=== PATIENT | male | born 2000 | race Caucasian/White ===

== ENCOUNTER 2022-09-02 02:08 | Inpatient (IN) ==
[2022-09-02 02:56] LABS: Basophils # (auto) 0.03 K/uL (0-0.2); Basophils % (auto) 0.4 %; Hematocrit (blood only) 41.6 % (40.1-51.0); Hemoglobin 14.4 g/dl (14.0-18.0); Immature Granulocytes # (auto) 0.13 K/uL (0.00-0.02); Immature Granulocytes % (auto) 1.7 %; Lymphocytes # (auto) 0.57 K/uL (1.2-3.4); Lymphocytes % (auto) 7.6 %; Mean Corpuscular Hemoglobin 29.1 pg (25.0-34.0); Mean Corpuscular Hgb Conc 34.6 g/dL (32.0-36.0); Mean Platelet Volume 9.6 fL (9.4-12.4); Monocytes # (auto) 0.87 K/uL (0.24-0.82); Monocytes % (auto) 11.6 %; Neutrophils # (auto) 5.92 K/uL (1.4-6.5); Neutrophils % (auto) 78.7 %; Platelet Count 206 K/uL (130-400); RDW Coefficient of Variation 12.7 % (11.5-14.5); RDW Standard Deviation 38.5 fL (36.4-46.3); Red Blood Count 4.95 M/uL (4.63-6.08); White Blood Count 7.52 K/ul (4.8-10.8)
[2022-09-02 03:20] LABS: INR 1.1 (0.9-1.1); Partial Thromboplastin Ratio 1.3; Partial Thromboplastin Time 34.7 Seconds (21.0-31.0); Prothrombin Time 11.2 Seconds (9.0-12.0)
[2022-09-02 03:22] LABS: Alanine Aminotransferase 18 U/L (7-52); Albumin Globulin Ratio 0.8 (0.9-2); Albumin Level 3.7 gm/dl (3.4-5.0); Alkaline Phosphatase 62 U/L (34-104); Anion Gap 9 (3-11); Aspartate Aminotransferase 21 U/L (13-39); BUN Creatinine Ratio 20.9 (10-20); Bilirubin,Total 0.3 mg/dl (0.2-1.0); Blood Urea Nitrogen 9 mg/dl (6-23); Calcium 8.8 mg/dl (8.5-10.1); Carbon Dioxide 28 mmol/L (21-32); Chloride 83 mmol/L (98-107); Creatinine Clr Calc Pharmacy 235.3 ml/min; Est GFR (African American) > 150.0 ml/min; Est GFR (Non-African American) > 150.0 ml/min; Globulin 4.4 gm/dl (2.5-4.0); Glucose 133 mg/dl (70-99(Fasting)); Magnesium 1.5 mg/dl (1.7-2.4); Sodium 120 mmol/L (136-145); Total Protein 8.1 gm/dl (6.0-8.3)
[2022-09-02 03:33] LABS: Influenza A virus by PCR Negative (Neg); Influenza B virus by PCR Negative (Neg); RSV by PCR Negative (Neg)
[2022-09-02 03:36] LABS: SARS CoV2 RNA(COVID-19) Ceph POSITIVE (Negative)
[2022-09-02] MEDS ORDERED: dexAMETHasone 6 MG in SYRINGE 0 ML IV ONE (03:50)
[2022-09-02] MEDS ORDERED: ALBUT/IPRATROP 3MG/0.5MG NEB 3 ML VIAL NEB STA (03:53)
[2022-09-02] MEDS ORDERED: dexAMETHasone**PF** 10 MG/ML VIAL IV STA (04:26)
--- NOTE | 2022-09-02 04:33 | History & Physical Report ---
Date of Service September 02, 2022 Assessment & Plan (1) COVID-19: Plan: 22 yo male with Prader-Willi syndrome presenting with SOB, wheeze and hypoxia. Found to be POSITIVE for Covid-19 infection. Patient is not vaccinated against Covid. Uncertain if he has had it before. Hypoxic on arrival at 81% on room air. Now with adequate saturation on HFNC 40L/min, 50% FiO2 -Admit to medical with telemetry -Maintain isolation precautions -Check ESR, CRP, Ferritin, LDH, Procalcitonin, Ddimer and BNP -Continue supplemental oxygen, wean as tolerated -Continue Dexamethasone 6mg IV daily -Discussed Remdesivir with patient's father. He does not wish to start Remdesivir at this time. -Lovenox 40mg daily -Tylenol PRN, Mucinex PRN -Albuterol HFA PRN (2) Hyponatremia: Plan: Ld=529. Suspect secondary to SIADH from Covid-19 infection -Check urine and serum osmolality -Check urine Na -Monitor chemistry F/E/N - Heplock. Monitor Na as above, Mg repletion x 2 grams, Regular diet as tolerated Ppx - Lovenox Code - Full Dispo - Admit to medical with telemetry History of Present Illness Chief Complaint: SOB, hypoxia Primary Care Provider: NO PCP Keith Daly is a 22yo male with Prader-Willi syndrome presenting with SOB and hypoxia, found to be POSITIVE for Covid-19 virus. Patient's symptoms began approximately 5 days ago. He developed malaise and fever as well as cough. His symptoms have been progressive over the last several days. Today he was having more difficulty breathing. His father checked his oxygen saturation at home and it was found to be in the low to mid 80's. Patient tachycardic in the ER, tachypnic with hypoxia at 81% on room air. He was placed on 4L of O2 by nasal cannula with rapid improvement in his oxygenation. Still with tachypnea and increased work of breathing, therefore was placed on High Flow NC. Father at bedside and assists with history. Patient resting comfortably, no additional complaints at this time. ER Course: Dexamethasone 6mg IV, Albuterol 3mL neb Allergies Allergy/AdvReac Type Severity Reaction Status Date / Time No Known Allergies Allergy Unverified 01/01/14 14:03 Home Medications Medication Instructions Recorded Confirmed Type Multivitamin 1 tab PO DAILY #0 tabs 01/01/14 History Past Med/Surg History Medical History Prader-Willi syndrome Surgical History History of back surgery Family History Other Asthma Social History (Updated 09/02/22 @ 04:49 by Ashlyn Jacome DO) Smoking Status: Never smoker Hx Alcohol Use: No Hx Substance Use: No Preferred Language: Nepali Feels Safe at Home: Yes Review of Systems Review of Systems: All systems reviewed & are unremarkable except as noted in HPI & below Physical Exam Physical Exam: General: patient resting comfortably, NAD, non-toxic in appearance Skin: warm, dry, intact, no rashes or lesions HEENT: NC/AT, PERRL, EOMI, anicteric sclera, conjunctiva without injection, external ear normal to inspection and nontender, nares patent, moist mucus membranes, dentition intact, no oropharyngeal lesions, neck supple, trachea midline, no LAD, no thyromegaly, no JVD Heart: +S1/S2, regular, tachycardic, no m/r/g Lungs: equal air entry bilaterally, no respiratory distress, breathing comfortably on HFNC 50% FiO2, saturations 96-98%, coarse breath sounds anteriorly with scattered wheezing Abd: +BS, soft, NT/ND, no masses/organomegaly/ascites Ext: warm, 2+ pulses in UE/LE bilaterally, no clubbing/cyanosis or edema Neuro: nonfocal, patient AA&O x 4, speech intact, no facial droop, moving all extremities on command with equal strength 5/5 Results & Data Results & Data ([facility]) Vital Signs (Past 12 Hours) Vital Signs Temp Pulse Pulse Resp BP BP Pulse Ox 09/02/22 04:00 108 H 27 H 157/94 H 96 09/02/22 03:30 112 H 28 H 150/99 H 96 09/02/22 03:00 112 H 29 H 160/102 H 95 09/02/22 02:47 109 H 30 H 95 09/02/22 03:44 101 H 23 96 09/02/22 03:32 97 09/02/22 02:43 20 95 09/02/22 02:44 94 09/02/22 02:44 94 09/02/22 02:08 113 H 30 H 156/98 H 95 09/02/22 02:10 36.6 C 110 H 20 151/92 H 81 L O2 Del Method O2 Flow Rate FiO2 09/02/22 04:00 09/02/22 03:30 09/02/22 03:00 09/02/22 02:47 09/02/22 03:44 High Flow Nasal Cannula 40 50 09/02/22 03:32 High Flow Nasal Cannula 40 09/02/22 02:43 Nasal Cannula 4 09/02/22 02:44 Nasal Cannula 4 09/02/22 02:44 Nasal Cannula 4 09/02/22 02:08 Nasal Cannula 4 09/02/22 02:10 Room Air Laboratory Results Laboratory Results WBC 7.52 K/ul (4.8-10.8) 09/02/22 02:35 RBC 4.95 M/uL (4.63-6.08) 09/02/22 02:35 Hgb 14.4 g/dl (14.0-18.0) 09/02/22 02:35 Hct 41.6 % (40.1-51.0) 09/02/22 02:35 MCV 84.0 fL (80.0-100.0) 09/02/22 02:35 MCH 29.1 pg (25.0-34.0) 09/02/22 02:35 MCHC 34.6 g/dL (32.0-36.0) 09/02/22 02:35 RDW Std Deviation 38.5 fL (36.4-46.3) 09/02/22 02:35 RDW Coeff of Ben 12.7 % (11.5-14.5) 09/02/22 02:35 Plt Count 206 K/uL (130-400) 09/02/22 02:35 MPV 9.6 fL (9.4-12.4) 09/02/22 02:35 Immature Gran % (Auto) 1.7 % 09/02/22 02:35 Neut % (Auto) 78.7 % 09/02/22 02:35 Lymph % (Auto) 7.6 % 09/02/22 02:35 Door % (Auto) 11.6 % 09/02/22 02:35 Eos % (Auto) 0.0 % 09/02/22 02:35 Baso % (Auto) 0.4 % 09/02/22 02:35 Neut # (Auto) 5.92 K/uL (1.4-6.5) 09/02/22 02:35 Lymph # (Auto) 0.57 K/uL (1.2-3.4) L 09/02/22 02:35 Door # (Auto) 0.87 K/uL (0.24-0.82) H 09/02/22 02:35 Eos # (Auto) 0.00 K/uL (0-0.50) 09/02/22 02:35 Baso # (Auto) 0.03 K/uL (0-0.2) 09/02/22 02:35 Immature Gran # (Auto) 0.13 K/uL (0.00-0.02) H 09/02/22 02:35 PT 11.2 Seconds (9.0-12.0) 09/02/22 02:35 INR 1.1 (0.9-1.1) 09/02/22 02:35 APTT 34.7 Seconds (21.0-31.0) H 09/02/22 02:35 PTT Ratio 1.3 09/02/22 02:35 Sodium 120 mmol/L (136-145) L 09/02/22 02:35 Potassium 4.0 mmol/L (3.5-5.1) 09/02/22 02:35 Chloride 83 mmol/L (98-107) L 09/02/22 02:35 Carbon Dioxide 28 mmol/L (21-32) 09/02/22 02:35 Anion Gap 9 (3-11) 09/02/22 02:35 BUN 9 mg/dl (6-23) 09/02/22 02:35 Creatinine 0.43 mg/dl (0.6-1.4) L 09/02/22 02:35 Est Cr Clr Drug Dosing 235.3 ml/min 09/02/22 02:35 Est GFR ( Amer) > 150.0 ml/min 09/02/22 02:35 Est GFR (Non-Af Amer) > 150.0 ml/min 09/02/22 02:35 BUN/Creatinine Ratio 20.9 (10-20) H 09/02/22 02:35 Glucose 133 mg/dl (70-99(Fasting)) H 09/02/22 02:35 Calcium 8.8 mg/dl (8.5-10.1) 09/02/22 02:35 Magnesium 1.5 mg/dl (1.7-2.4) L 09/02/22 02:35 Total Bilirubin 0.3 mg/dl (0.2-1.0) 09/02/22 02:35 AST 21 U/L (13-39) 09/02/22 02:35 ALT 18 U/L (7-52) 09/02/22 02:35 Alkaline Phosphatase 62 U/L (34-104) 09/02/22 02:35 Total Protein 8.1 gm/dl (6.0-8.3) 09/02/22 02:35 Albumin 3.7 gm/dl (3.4-5.0) 09/02/22 02:35 Globulin 4.4 gm/dl (2.5-4.0) H 09/02/22 02:35 Albumin/Globulin Ratio 0.8 (0.9-2) L 09/02/22 02:35 SARS-CoV-2 (PCR) POSITIVE (Negative) A* 09/02/22 02:35 Influenza Type A (PCR) Negative (Neg) 09/02/22 02:35 Influenza Type B (PCR) Negative (Neg) 09/02/22 02:35 RSV (RT-PCR) Negative (Neg) 09/02/22 02:35 Diagnostic Findings CXR with post-operative changes, airspace opacity present RML/RLL Code Status & VTE Plan VTE Prophylaxis Plan VTE Prophylaxis will be ordered: Yes PG Care Time/CCT Total # of Minutes Spent Total Time Spent with Patient: Total time spent is greater than 50% in coordination of care (as documented) at patient's floor/unit and/or counseling patient: Coding Level of Care Code 18303 Initial Inpt Care Lvl 2 Diagnoses COVID-19 U07.1 Hyponatremia E87.1
--- NOTE | 2022-09-02 04:47 | Emergency Department Note ---
History of Present Illness General Chief complaint: Flu Like Symptoms Stated complaint: TROUBLE BREATHING, FLU-LIKE SYMPTOMS Time Seen by Provider: 09/02/22 02:49 Source: patient and family Mode of arrival: ambulatory Limitations: no limitations History of Present Illness Provider complaint: trouble breathing, recent flu like symptoms This is a 22-year-old male brought in by family due to concern for increased dif ficulty breathing. Father at bedside states their entire family has had flulike symptoms recently which the patient began having on Tuesday. He states he has had nasal congestion, rhinorrhea, cough, fevers and chills. He states today he appeared to have increased work of breathing. Father states due to his concern and his own personal history of asthma, he did check the patient's pulse ox this evening and found it to be 85% at home. He states his overall color appeared off so he brought him in for additional evaluation as he is concerned for possible pneumonia. No other recent change in medications. No history of asthma or other respiratory issues. Patient does have a history of Prader-Willi syndrome. Patient at bedside states he does feel improved with oxygen in place. Admits to a cough, nasal congestion, fatigue, fevers and chills. He denies any current chest pain or abdominal pain. Denies vomiting and diarrhea. He states his breathing seems worse with exertion. Home Medications Medication Instructions Recorded Confirmed Type Multivitamin 1 tab PO DAILY #0 tabs 01/01/14 History Allergies Allergy/AdvReac Type Severity Reaction Status Date / Time No Known Allergies Allergy Unverified 01/01/14 14:03 Past Med/Surg History Medical History Prader-Willi syndrome Surgical History History of back surgery Family History Other Asthma Social History Smoking Status: Never smoker Second Hand Exposure: No; Do You Dip or Chew Tobacco: No; Tobacco Cessation Education Requested by Patient: No Hx Alcohol Use: No Hx Substance Use: No Preferred Language: Venezuelan Communication Ability Comment: Developmental delay; dad answers most questions asked. Roof Technician Required: No Beliefs That Will Affect Care: None marital status: Single Current Living Situation: Family Other Information That Helps Us Care for You: Yes (HX of Prader-Willi syndrome) Feels Safe at Home: Yes Safety Concerns: Feels Safe At This Time Assistive Devices: None Review of Systems A total of 10 systems reviewed and were otherwise negative All systems reviewed & are unremarkable except as noted in HPI & below Physical Exam Vital Signs Vital Signs - 24 hr 09/02/22 04:00 Pulse Rate 108 H Pulse Rate from SpO2 Sensor 109 H Respiratory Rate 27 H Blood Pressure 157/94 H Blood Pressure Mean 115 Pulse Oximetry 96 GENERAL: alert, well appearing, well nourished, no distress, non-toxic EYE EXAM: normal conjunctiva, PERRL and EOM's grossly intact OROPHARYNX: no exudate, no erythema, lips, buccal mucosa, and tongue normal and mucous membranes are moist NECK: supple, no nuchal rigidity, no adenopathy, non-tender LUNGS: Normal chest wall mechanics, increased work of breathing noted, tachypnea noted, bilateral wheezing and rales HEART: no murmurs, S1 normal and S2 normal ABDOMEN: abdomen soft, non-tender, normo-active bowel sounds, no masses, no rebound or guarding. BACK: Back is symmetrical on inspection and there is no deformity, no midline tenderness, no CVA tenderness. SKIN: no rashes and no bruising UPPER EXTREMITIES: upper extremities are grossly normal. FROM, nml pulses b/l. LOWER EXTREMITIES: No pitting edema. FROM, nml pulses b/l. NEURO EXAM: Normal sensorium, cranial nerves II-XII grossly intact, normal speech, no gross weakness of arms, no gross weakness of legs. Gross sensation intact. Course Administered Medications Enoxaparin Sodium (Enoxaparin Inj 40 Mg/0.4 Ml Syr) 40 mg SQ BID LEA Stop: 10/02/22 20:59 Last Admin: 09/02/22 21:30 Dose: 40 mg Documented By: ANDERSON Guaifenesin (Guaifenesin 600 Mg Tabcr) 1,200 mg PO Q12 LEA Stop: 10/02/22 08:59 Last Admin: 09/02/22 21:29 Dose: 1,200 mg Documented By: Admin: 09/02/22 09:22 Dose: 1,200 mg Documented By: NELY Dexamethasone 6 mg/ Syringe 1.5 mls @ 1 mls/min IV Q24H LEA Stop: 10/02/22 08:59 Last Admin: 09/02/22 10:19 Dose: 1 mls/min Documented By: NELY Levalbuterol HCl (Levalbuterol Hcl 1.25 Mg/3 Ml Neb) 1.25 mg NEB Q6R LEA; Protocol Stop: 10/02/22 12:59 Last Admin: 09/03/22 00:47 Dose: 1.25 mg Documented By: Admin: 09/02/22 19:08 Dose: 1.25 mg Documented By: Admin: 09/02/22 12:02 Dose: 1.25 mg Documented By: ARACELI Magnesium Oxide (Magnesium Oxide 400 Mg Tab) 400 mg PO BID LEA Stop: 10/02/22 08:59 Last Admin: 09/02/22 21:29 Dose: 400 mg Documented By: Admin: 09/02/22 11:48 Dose: 400 mg Documented By: NELY Discontinued Medications Albuterol (Albut/Ipratrop 3mg/0.5mg Neb 3 Ml Vial) 3 ml NEB NOW STA; Protocol Stop: 09/02/22 03:54 Last Admin: 09/02/22 04:06 Dose: 3 ml Documented By: NATALIA Dexamethasone Sodium Phosphate (DexamethasonePf 10 Mg/Ml Vial) 6 mg IV NOW STA Stop: 09/02/22 04:27 Last Admin: 09/02/22 04:33 Dose: 6 mg Documented By: NATALIA Enoxaparin Sodium (Enoxaparin Inj 40 Mg/0.4 Ml Syr) 40 mg SQ QAM LEA Stop: 10/02/22 08:59 Last Admin: 09/02/22 09:22 Dose: 40 mg Documented By: NELY Magnesium Sulfate/Dextrose (Magnesium Sulfate / D5w) 1 gm in 100 mls @ 50 mls/hr IV Q2H LEA Stop: 09/02/22 10:05 Last Infusion: 09/02/22 12:19 Dose: 0 mls/hr Documented By: Admin: 09/02/22 10:19 Dose: 50 mls/hr Documented By: Infusion: 09/02/22 10:08 Dose: 50 mls/hr Documented By: Admin: 09/02/22 08:08 Dose: 50 mls/hr Documented By: SM Levalbuterol HCl (Levalbuterol Hcl 0.63 Mg/3 Ml Neb) Confirm Administered Dose 0.63 mg .ROUTE .STK-MED ONE Stop: 09/02/22 11:58 Last Admin: 09/02/22 12:02 Dose: Not Given Documented By: ARACELI Medical Decision Making Differential Diagnosis Differential diagnoses includes but is not limited to pneumonia, bronchitis, COPD/Asthma exacerbation, pneumothorax, pulmonary embolism, congestive heart failure, acute coronary syndrome Medical Records Attestation: I reviewed the patient's medical records. Home Medications Current Medication List: was personally reviewed by mn Laboratory Data Attestation: I reviewed the patient's lab results. Result diagrams: 09/02/22 02:35 09/02/22 18:03 Lab Results 09/02/22 09/02/22 09/02/22 Range/Units 02:35 02:35 02:35 WBC 7.52 (4.8-10.8) K/ul RBC 4.95 (4.63-6.08) M/uL Hgb 14.4 (14.0-18.0) g/dl Hct 41.6 (40.1-51.0) % MCV 84.0 (80.0-100.0) fL MCH 29.1 (25.0-34.0) pg MCHC 34.6 (32.0-36.0) g/dL RDW Std Deviation 38.5 (36.4-46.3) fL RDW Coeff of Ben 12.7 (11.5-14.5) % Plt Count 206 (130-400) K/uL MPV 9.6 (9.4-12.4) fL Immature Gran % (Auto) 1.7 % Neut % (Auto) 78.7 % Lymph % (Auto) 7.6 % Sampson % (Auto) 11.6 % Eos % (Auto) 0.0 % Baso % (Auto) 0.4 % Neut # (Auto) 5.92 (1.4-6.5) K/uL Lymph # (Auto) 0.57 L (1.2-3.4) K/uL Sampson # (Auto) 0.87 H (0.24-0.82) K/uL Eos # (Auto) 0.00 (0-0.50) K/uL Baso # (Auto) 0.03 (0-0.2) K/uL Immature Gran # (Auto) 0.13 H (0.00-0.02) K/uL PT 11.2 (9.0-12.0) Seconds INR 1.1 (0.9-1.1) APTT 34.7 H (21.0-31.0) Seconds PTT Ratio 1.3 Sodium (136-145) mmol/L Potassium (3.5-5.1) mmol/L Chloride (98-107) mmol/L Carbon Dioxide (21-32) mmol/L Anion Gap (3-11) BUN (6-23) mg/dl Creatinine (0.6-1.4) mg/dl Est Cr Clr Drug Dosing ml/min Est GFR ( Amer) ml/min Est GFR (Non-Af Amer) ml/min BUN/Creatinine Ratio (10-20) Glucose (70-99(Fasting)) mg/dl Calcium (8.5-10.1) mg/dl Magnesium (1.7-2.4) mg/dl Total Bilirubin (0.2-1.0) mg/dl AST (13-39) U/L ALT (7-52) U/L Alkaline Phosphatase (34-104) U/L Total Protein (6.0-8.3) gm/dl Albumin (3.4-5.0) gm/dl Globulin (2.5-4.0) gm/dl Albumin/Globulin Ratio (0.9-2) TSH (0.300-4.500) uIu/ml SARS-CoV-2 (PCR) POSITIVE A* (Negative) Influenza Type A (PCR) Negative (Neg) Influenza Type B (PCR) Negative (Neg) RSV (RT-PCR) Negative (Neg) 09/02/22 09/02/22 Range/Units 02:35 02:35 WBC (4.8-10.8) K/ul RBC (4.63-6.08) M/uL Hgb (14.0-18.0) g/dl Hct (40.1-51.0) % MCV (80.0-100.0) fL MCH (25.0-34.0) pg MCHC (32.0-36.0) g/dL RDW Std Deviation (36.4-46.3) fL RDW Coeff of Ben (11.5-14.5) % Plt Count (130-400) K/uL MPV (9.4-12.4) fL Immature Gran % (Auto) % Neut % (Auto) % Lymph % (Auto) % Sampson % (Auto) % Eos % (Auto) % Baso % (Auto) % Neut # (Auto) (1.4-6.5) K/uL Lymph # (Auto) (1.2-3.4) K/uL Sampson # (Auto) (0.24-0.82) K/uL Eos # (Auto) (0-0.50) K/uL Baso # (Auto) (0-0.2) K/uL Immature Gran # (Auto) (0.00-0.02) K/uL PT (9.0-12.0) Seconds INR (0.9-1.1) APTT (21.0-31.0) Seconds PTT Ratio Sodium 120 L (136-145) mmol/L Potassium 4.0 (3.5-5.1) mmol/L Chloride 83 L (98-107) mmol/L Carbon Dioxide 28 (21-32) mmol/L Anion Gap 9 (3-11) BUN 9 (6-23) mg/dl Creatinine 0.43 L (0.6-1.4) mg/dl Est Cr Clr Drug Dosing 235.3 ml/min Est GFR ( Amer) > 150.0 ml/min Est GFR (Non-Af Amer) > 150.0 ml/min BUN/Creatinine Ratio 20.9 H (10-20) Glucose 133 H (70-99(Fasting)) mg/dl Calcium 8.8 (8.5-10.1) mg/dl Magnesium 1.5 L (1.7-2.4) mg/dl Total Bilirubin 0.3 (0.2-1.0) mg/dl AST 21 (13-39) U/L ALT 18 (7-52) U/L Alkaline Phosphatase 62 (34-104) U/L Total Protein 8.1 (6.0-8.3) gm/dl Albumin 3.7 (3.4-5.0) gm/dl Globulin 4.4 H (2.5-4.0) gm/dl Albumin/Globulin Ratio 0.8 L (0.9-2) TSH 1.162 (0.300-4.500) uIu/ml SARS-CoV-2 (PCR) (Negative) Influenza Type A (PCR) (Neg) Influenza Type B (PCR) (Neg) RSV (RT-PCR) (Neg) Imaging Data My Impression: CXR: Chest x-ray difficult to interpret due to hardware noted in back and accompanying scoliosis with rotation of the chest, appearance of bilateral pleural effusions, no cardiomegaly, no wide mediastinum ECG Data Attestation: I personally reviewed and interpreted this ECG as follows: Indication: + SOB/dyspnea Rate (beats per minute): 104 Rhythm: + sinus tachycardia ECG Intervals/blocks: + Normal QRS and + Normal QT ECG Gordon: + Normal ECG ST segments: + Nonspecific ST abnormalities MDM Narrative An order was placed for continuous cardiac monitoring. The monitor shows a rate of 80_ with _normal sinus_ rhythm. This is a 22-year-old male brought in by family due to concern for increased respiratory distress and recent known sick contact. Patient found to be hypoxic in triage and was immediately brought back to the room and placed on nasal cannula. Oxygen saturations did improve, although on my bedside examination he still had some increased work of breathing. Labs started and chest x-ray performed. Given patient's body habitus, rotation during x-ray, and prior history of surgery with remaining hardware, was difficult to assess for pneumonia on chest x-ray. Patient was placed on high flow nasal cannula with improvement and had decreased work of breathing. Patient's nasal swab was positive for COVID. Patient also found to have significant hyponatremia, other labs reassuring. Unclear if the hyponatremia is secondary to COVID, other occult pneumonia, adrenal insufficiency, or other acute process. Patient with no evidence of GABY. Patient and father updated on results. Case discussed with hospitalist for additional evaluation and management. Patient was given Decadro n IV per COVID protocol. Impression & Plan Dyspnea, COVID-19, Hypoxia, Prader-Willi syndrome, Hyponatremia, Hypomagnesemia Discharge Plan Visit Data Chief Complaint: Flu Like Symptoms Stated Complaint: TROUBLE BREATHING, FLU-LIKE SYMPTOMS ED Provider: Amanda Angulo Discharge Problem: Dyspnea, COVID-19, Hypoxia, Prader-Willi syndrome, Hyponatremia, Hypomagnesemia Patient Disposition: Admitted As Inpatient Discharge Instructions Interventions: ED Discharge Assessment Last Done: 09/02/22 05:57
[2022-09-02] MEDS ORDERED: ALBUTEROL HFA 8 GM INHALER INH PRN (06:06)
[2022-09-02] MEDS ORDERED: ONDANSETRON INJ 2 MG/ML 2 ML VIAL IV PRN (06:06)
[2022-09-02] MEDS ORDERED: ACETAMINOPHEN 325 MG TAB PO PRN (06:06)
--- NOTE | 2022-09-02 07:06 | XRay Report ---
XR chest 1V portable CLINICAL HISTORY: Shortness of breath. COMPARISON STUDY: Chest radiograph January 01, 2014. FINDINGS: Severe thoracolumbar lumbar scoliosis is noted status post rodding. There is no pneumothora x. Evaluation of the chest is difficult given severe scoliosis. Possible small bilateral pleural effu sions and bibasilar opacities are noted. Opacities are more prominent than on prior exam. No evidence for pulmonary edema. Cardiomediastinal silhouette is normal. IMPRESSION: Apparent bibasilar opacities and small bilateral pleural effusions. Although the finding s may be artifactual given scoliosis, pneumonia cannot be excluded. Radiographic follow-up is recomm ended. ACT 112: Negative or not required by law. Electronically signed by: Barney Painting M.D. 09/02/2022 7:05 AM
[2022-09-02] MEDS: MAGNESIUM SULFATE / D5W 1 GM/100 ML BAG IV SCH ×2 (08:08→10:19)
[2022-09-02] MEDS ORDERED: ENOXAPARIN INJ 40 MG/0.4 ML SYR SQ SCH (09:00)
[2022-09-02] MEDS: guaiFENesin 600 MG TABCR PO SCH ×2 (09:22→21:29)
[2022-09-02 09:47] LABS: Anion Gap 8 (3-11); BUN Creatinine Ratio 21.2 (10-20); Blood Urea Nitrogen 7 mg/dl (6-23); C Reactive Protein 19.49 mg/dl (0-0.5); Calcium 9.1 mg/dl (8.5-10.1); Carbon Dioxide 28 mmol/L (21-32); Chloride 89 mmol/L (98-107); Creatinine Clr Calc Pharmacy 304.6 ml/min; Est GFR (African American) > 150.0 ml/min; Est GFR (Non-African American) > 150.0 ml/min; Glucose 157 mg/dl (70-99(Fasting)); Phosphorus 2.7 mg/dl (2.5-4.9); Potassium 4.1 mmol/L (3.5-5.1); Sodium 125 mmol/L (136-145)
[2022-09-02 09:59] LABS: Ferritin 289.8 ng/ml (8-388)
[2022-09-02 10:19] LABS: D Dimer 1930 ug/L FEU (0-500)
[2022-09-02] MEDS: dexAMETHasone 6 MG in SYRINGE 0 ML IV SCH (10:19)
[2022-09-02] MEDS: MAGNESIUM OXIDE 400 MG TAB PO SCH ×2 (11:48→21:29)
[2022-09-02] MEDS ORDERED: LEVALBUTEROL HCL 0.63 MG/3 ML NEB ONE (11:57)
[2022-09-02] MEDS: LEVALBUTEROL HCL 1.25 MG/3 ML NEB NEB SCH ×2 (12:02→19:08)
--- NOTE | 2022-09-02 12:13 | Nephrology Consultation ---
Date of Consultation September 02, 2022 Assessment & Plan (1) Hyponatremia: Excessive free water intake and decreased solute intake contributing. Possible SIADH in response to infection. Urine osmolality suggests ability to autocorrect. Free water restricted. Volume status relatively euvolemic. BP acceptable. Sodium improving acceptably. Will repeat a serum sodium this afternoon. Document strict I/O's. (2) COVID-19: Clinically improving. Management per hospitalist team. (3) Prader-Willi syndrome: Maintain 1.2 L daily fluid restriction. Document strict I/O's. History of Present Illness Reason for Consultation: Hyponatremia Requesting Physician: Eliceo Shelby Attending Physician: Eliceo Shelby History of Present Illness Mr. Keith Daly is a 22 year-old male with Prader-Willi syndrome admitted to [facility] with COVID-19 pneumonia. He was seen and evaluated with his father at the bedside this AM. Nephrology consultation requested for hyponatremia. No prior history of dysnatremia reported. Electrolytes otherwise normal. Normal serum creatinine. Symptoms of shortness of breath and subjective fevers reported for ~48 hours. Keith's father was encouraging fluids. No obvious fluid retention or edema. Good urine output. No GI symptoms reported. Keith is reporting overall improvement today in terms of symptoms. He continues to sweat but no fevers documented. Remains O2 dependent. Urine osmolality 114. TSH 1.16. Allergies Allergy/AdvReac Type Severity Reaction Status Date / Time No Known Allergies Allergy Unverified 01/01/14 14:03 Home Medications Medication Instructions Recorded Confirmed Type Multivitamin 1 tab PO DAILY #0 tabs 01/01/14 History Patient History Medical History Prader-Willi syndrome Surgical History History of back surgery Family History Other Asthma Social History Smoking Status: Never smoker Second Hand Exposure: No; Do You Dip or Chew Tobacco: No; Tobacco Cessation Education Requested by Patient: No Hx Alcohol Use: No Hx Substance Use: No Preferred Language: Pakistani Communication Ability Comment: Developmental delay; dad answers most questions asked. Dental Intern Required: No Beliefs That Will Affect Care: None Current Living Situation: Family Other Information That Helps Us Care for You: Yes (HX of Prader-Willi syndrome) Feels Safe at Home: Yes Safety Concerns: Feels Safe At This Time Assistive Devices: Oxygen - Continuous Review of Systems Review of Systems: All systems reviewed & are unremarkable except as noted in HPI & below Physical Exam Constitutional: well developed; no acute distress Eyes: no scleral abnormality and no corneal abnormality ENMT: Mouth: no oral mucosal abnormality and oral mucous membranes not dry Neck: normal visual inspection and trachea midline Respiratory: normal respiratory effort Auscultation: lungs clear to auscultation bilaterally Cardiovascular: Rate/Rhythm: regular rate Heart Sounds: normal S1 and normal S2 Extremities: no edema Musculoskeletal: Extremities: no cyanosis and no clubbing Skin: normal turgor; no lesions Neurologic: Motor/Sensory: no tremor and no asterixis Psychiatric: Orientation: alert and oriented x 3 Results & Data ([facility]) Vital Signs (Past 12 Hours) Vital Signs Temp Pulse Pulse Resp BP BP BP 09/02/22 12:04 78 16 09/02/22 11:36 09/02/22 07:26 95 H 09/02/22 06:13 09/02/22 06:13 36.9 C 109 H 22 139/87 09/02/22 06:08 36.9 C 22 139/87 09/02/22 05:57 09/02/22 04:00 108 H 27 H 157/94 H 09/02/22 03:30 112 H 28 H 150/99 H 09/02/22 03:00 112 H 29 H 160/102 H 09/02/22 02:47 109 H 30 H 09/02/22 03:44 101 H 23 09/02/22 03:32 09/02/22 02:43 20 09/02/22 02:44 09/02/22 02:44 09/02/22 02:08 113 H 30 H 156/98 H 09/02/22 02:10 36.6 C 110 H 20 151/92 H Pulse Ox O2 Del Method O2 Flow Rate FiO2 09/02/22 12:04 94 Nasal Cannula 3.5 09/02/22 11:36 Nasal Cannula 4 09/02/22 07:26 09/02/22 06:13 Nasal Cannula 4 09/02/22 06:13 94 Nasal Cannula 4 09/02/22 06:08 94 Nasal Cannula 4 09/02/22 05:57 Nasal Cannula 4 09/02/22 04:00 96 09/02/22 03:30 96 09/02/22 03:00 95 09/02/22 02:47 95 09/02/22 03:44 96 High Flow Nasal Cannula 40 50 09/02/22 03:32 97 High Flow Nasal Cannula 40 09/02/22 02:43 95 Nasal Cannula 4 09/02/22 02:44 94 Nasal Cannula 4 09/02/22 02:44 94 Nasal Cannula 4 09/02/22 02:08 95 Nasal Cannula 4 09/02/22 02:10 81 L Room Air Laboratory Results Laboratory Results - last 24 hr 09/02/22 09/02/22 09/02/22 02:35 02:35 02:35 WBC 7.52 RBC 4.95 Hgb 14.4 Hct 41.6 MCV 84.0 MCH 29.1 MCHC 34.6 RDW Std Deviation 38.5 RDW Coeff of Ben 12.7 Plt Count 206 MPV 9.6 Immature Gran % (Auto) 1.7 Neut % (Auto) 78.7 Lymph % (Auto) 7.6 [place] % (Auto) 11.6 Eos % (Auto) 0.0 Baso % (Auto) 0.4 Neut # (Auto) 5.92 Lymph # (Auto) 0.57 L [place] # (Auto) 0.87 H Eos # (Auto) 0.00 Baso # (Auto) 0.03 Immature Gran # (Auto) 0.13 H ESR PT 11.2 INR 1.1 APTT 34.7 H PTT Ratio 1.3 D-Dimer Sodium Potassium Chloride Carbon Dioxide Anion Gap BUN Creatinine Est Cr Clr Drug Dosing Est GFR ( Amer) Est GFR (Non-Af Amer) BUN/Creatinine Ratio Glucose Osmolality Calcium Phosphorus Magnesium Ferritin Total Bilirubin AST ALT Alkaline Phosphatase Lactate Dehydrogenase C-Reactive Protein B-Natriuretic Peptide Total Protein Albumin Globulin Albumin/Globulin Ratio Procalcitonin TSH Urine Osmolality Ur Random Sodium SARS-CoV-2 (PCR) POSITIVE A* Influenza Type A (PCR) Negative Influenza Type B (PCR) Negative RSV (RT-PCR) Negative 09/02/22 09/02/22 09/02/22 02:35 02:35 08:47 WBC RBC Hgb Hct MCV MCH MCHC RDW Std Deviation RDW Coeff of Ben Plt Count MPV Immature Gran % (Auto) Neut % (Auto) Lymph % (Auto) [place] % (Auto) Eos % (Auto) Baso % (Auto) Neut # (Auto) Lymph # (Auto) [place] # (Auto) Eos # (Auto) Baso # (Auto) Immature Gran # (Auto) ESR 95 H PT INR APTT PTT Ratio D-Dimer Sodium 120 L Potassium 4.0 Chloride 83 L Carbon Dioxide 28 Anion Gap 9 BUN 9 Creatinine 0.43 L Est Cr Clr Drug Dosing 235.3 Est GFR ( Amer) > 150.0 Est GFR (Non-Af Amer) > 150.0 BUN/Creatinine Ratio 20.9 H Glucose 133 H Osmolality Calcium 8.8 Phosphorus Magnesium 1.5 L Ferritin Total Bilirubin 0.3 AST 21 ALT 18 Alkaline Phosphatase 62 Lactate Dehydrogenase C-Reactive Protein B-Natriuretic Peptide Total Protein 8.1 Albumin 3.7 Globulin 4.4 H Albumin/Globulin Ratio 0.8 L Procalcitonin TSH 1.162 Urine Osmolality Ur Random Sodium SARS-CoV-2 (PCR) Influenza Type A (PCR) Influenza Type B (PCR) RSV (RT-PCR) 09/02/22 09/02/22 09/02/22 08:47 08:47 08:47 WBC RBC Hgb Hct MCV MCH MCHC RDW Std Deviation RDW Coeff of Ben Plt Count MPV Immature Gran % (Auto) Neut % (Auto) Lymph % (Auto) [place] % (Auto) Eos % (Auto) Baso % (Auto) Neut # (Auto) Lymph # (Auto) [place] # (Auto) Eos # (Auto) Baso # (Auto) Immature Gran # (Auto) ESR PT INR APTT PTT Ratio D-Dimer 1930 H* Sodium Potassium Chloride Carbon Dioxide Anion Gap BUN Creatinine Est Cr Clr Drug Dosing Est GFR ( Amer) Est GFR (Non-Af Amer) BUN/Creatinine Ratio Glucose Osmolality 262 L Calcium Phosphorus 2.7 Magnesium Ferritin 289.8 Total Bilirubin AST ALT Alkaline Phosphatase Lactate Dehydrogenase C-Reactive Protein 19.49 H B-Natriuretic Peptide Total Protein Albumin Globulin Albumin/Globulin Ratio Procalcitonin TSH Urine Osmolality Ur Random Sodium SARS-CoV-2 (PCR) Influenza Type A (PCR) Influenza Type B (PCR) RSV (RT-PCR) 09/02/22 09/02/22 09/02/22 08:47 08:47 08:47 WBC RBC Hgb Hct MCV MCH MCHC RDW Std Deviation RDW Coeff of Ben Plt Count MPV Immature Gran % (Auto) Neut % (Auto) Lymph % (Auto) [place] % (Auto) Eos % (Auto) Baso % (Auto) Neut # (Auto) Lymph # (Auto) [place] # (Auto) Eos # (Auto) Baso # (Auto) Immature Gran # (Auto) ESR PT INR APTT PTT Ratio D-Dimer Sodium Potassium Chloride Carbon Dioxide Anion Gap BUN Creatinine Est Cr Clr Drug Dosing Est GFR ( Amer) Est GFR (Non-Af Amer) BUN/Creatinine Ratio Glucose Osmolality Calcium Phosphorus Magnesium Ferritin Total Bilirubin AST ALT Alkaline Phosphatase Lactate Dehydrogenase 196 C-Reactive Protein B-Natriuretic Peptide 83 Total Protein Albumin Globulin Albumin/Globulin Ratio Procalcitonin 0.23 TSH Urine Osmolality Ur Random Sodium SARS-CoV-2 (PCR) Influenza Type A (PCR) Influenza Type B (PCR) RSV (RT-PCR) 09/02/22 09/02/22 09/02/22 08:47 Unknown Unknown WBC RBC Hgb Hct MCV MCH MCHC RDW Std Deviation RDW Coeff of Ben Plt Count MPV Immature Gran % (Auto) Neut % (Auto) Lymph % (Auto) [place] % (Auto) Eos % (Auto) Baso % (Auto) Neut # (Auto) Lymph # (Auto) [place] # (Auto) Eos # (Auto) Baso # (Auto) Immature Gran # (Auto) ESR PT INR APTT PTT Ratio D-Dimer Sodium 125 L Potassium 4.1 Chloride 89 L Carbon Dioxide 28 Anion Gap 8 BUN 7 Creatinine 0.33 L Est Cr Clr Drug Dosing 304.6 Est GFR ( Amer) > 150.0 Est GFR (Non-Af Amer) > 150.0 BUN/Creatinine Ratio 21.2 H Glucose 157 H Osmolality Calcium 9.1 Phosphorus Magnesium Ferritin Total Bilirubin AST ALT Alkaline Phosphatase Lactate Dehydrogenase C-Reactive Protein B-Natriuretic Peptide Total Protein Albumin Globulin Albumin/Globulin Ratio Procalcitonin TSH Urine Osmolality 116 L Ur Random Sodium 10 SARS-CoV-2 (PCR) Influenza Type A (PCR) Influenza Type B (PCR) RSV (RT-PCR) PG Care Time/CCT Total # of Minutes Spent Total Time Spent with Patient: Total time spent is greater than 50% in coordination of care (as documented) at patient's floor/unit and/or counseling patient: Coding Level of Care Code 55646 Inpt Consult Level 4 Diagnoses Hyponatremia E87.1 COVID-19 U07.1 Prader-Willi syndrome Q87.1
--- NOTE | 2022-09-02 19:11 | Electrocardiogram Report ---
Test Reason : Blood Pressure : / mmHG Vent. Rate : 104 BPM Atrial Rate : 104 BPM P-R Int : 130 ms QRS Dur : 092 ms QT Int : 328 ms P-R-T Axes : 029 -12 025 degrees QTc Int : 431 ms Sinus tachycardia Moderate voltage criteria for LVH, may be normal variant St segement changes concerning for ischemia Abnormal ECG No previous ECGs available Confirmed by Honorio Garcia ([id number]) on 09/02/2022 7:10:57 PM Referred By: REFERRED SELF Confirmed By:Rush Garcia
[2022-09-02] MEDS: ENOXAPARIN INJ 40 MG/0.4 ML SYR SQ SCH (21:30)
[2022-09-03] MEDS: LEVALBUTEROL HCL 1.25 MG/3 ML NEB NEB SCH ×4 (00:47→18:02)
[2022-09-03 07:35] LABS: Anion Gap 6 (3-11); BUN Creatinine Ratio 36.4 (10-20); Blood Urea Nitrogen 12 mg/dl (6-23); Calcium 8.9 mg/dl (8.5-10.1); Carbon Dioxide 28 mmol/L (21-32); Chloride 96 mmol/L (98-107); Creatinine Clr Calc Pharmacy 301.1 ml/min; Est GFR (African American) > 150.0 ml/min; Est GFR (Non-African American) > 150.0 ml/min; Glucose 122 mg/dl (70-99(Fasting)); Potassium 4.7 mmol/L (3.5-5.1); Sodium 130 mmol/L (136-145)
[2022-09-03] MEDS: guaiFENesin 600 MG TABCR PO SCH ×2 (09:03→22:15)
[2022-09-03] MEDS: ENOXAPARIN INJ 40 MG/0.4 ML SYR SQ SCH ×2 (09:03→22:15)
[2022-09-03] MEDS: MAGNESIUM OXIDE 400 MG TAB PO SCH ×2 (09:03→22:15)
[2022-09-03] MEDS: dexAMETHasone 6 MG in SYRINGE 0 ML IV SCH (09:04)
[2022-09-03 09:24] LABS: Hematocrit (blood only) 42.1 % (40.1-51.0); Hemoglobin 14.2 g/dl (14.0-18.0); Mean Corpuscular Hemoglobin 28.9 pg (25.0-34.0); Mean Corpuscular Hgb Conc 33.7 g/dL (32.0-36.0); Mean Corpuscular Volume 85.6 fL (80.0-100.0); Mean Platelet Volume 9.9 fL (9.4-12.4); Platelet Count 272 K/uL (130-400); RDW Coefficient of Variation 12.9 % (11.5-14.5); RDW Standard Deviation 40.5 fL (36.4-46.3); Red Blood Count 4.92 M/uL (4.63-6.08); White Blood Count 8.71 K/ul (4.8-10.8)
--- NOTE | 2022-09-03 10:06 | Nephrology Progress Note ---
Date of Service September 03, 2022 Assessment & Plan (1) Hyponatremia: Plan: Excessive free water intake and decreased solute intake contributing. Keith is correcting appropriately on his own supported by limiting free water intake. Maintain 1.2 L daily fluid restriction pending sodium normalizes. Repeat labs tomorrow AM. Volume status euvolemic. BP acceptable. Document I/O's. No additional recommendations at this time. Nephrology will sign-off. Please call with questions or concerns. (2) COVID-19: Plan: Clinically improving. Management per hospitalist team. (3) Prader-Willi syndrome: Plan: Maintain 1.2 L daily fluid restriction pending sodium normalizes. Document strict I/O's. Admission and Anticipated Discharge Date Admission Date: September 02, 2022 Subjective No acute events overnight. No complaints this AM. Keith was seen and evaluated with his father at the bedside. Keith is tolerating fluid restriction well. He is breathing relatively comfortably but continues to require supplemental O2. Denies fevers or chills. Denies thirst. No fluid retention or edema. Review of Systems Review of Systems: All systems reviewed & are unremarkable except as noted in HPI & below Physical Exam Constitutional: well developed; no acute distress Eyes: no scleral abnormality and no corneal abnormality ENMT: Mouth: no oral mucosal abnormality and oral mucous membranes not dry Neck: normal visual inspection and trachea midline Respiratory: normal respiratory effort Auscultation: lungs clear to auscultation bilaterally Cardiovascular: Rate/Rhythm: regular rate Heart Sounds: normal S1 and normal S2 Extremities: no edema Musculoskeletal: Extremities: no cyanosis and no clubbing Skin: normal turgor; no lesions Neurologic: Motor/Sensory: no tremor and no asterixis Psychiatric: Orientation: alert and oriented x 3 Results & Data ([facility]) Vital Signs (Past 12 Hours) Vital Signs Temp Pulse Pulse Pulse Resp BP BP 09/03/22 08:27 36.6 C 104 H 20 123/81 09/03/22 07:19 76 09/03/22 07:07 78 20 09/03/22 04:00 36.4 C L 83 18 121/75 09/03/22 03:48 75 09/02/22 23:00 37.2 C 77 20 118/82 09/02/22 22:06 78 09/02/22 22:05 Pulse Ox O2 Del Method O2 Flow Rate 09/03/22 08:27 96 Nasal Cannula 3 09/03/22 07:19 09/03/22 07:07 94 Nasal Cannula 3 09/03/22 04:00 93 Nasal Cannula 3 09/03/22 03:48 96 Nasal Cannula 3 09/02/22 23:00 92 Nasal Cannula 3 09/02/22 22:06 09/02/22 22:05 Nasal Cannula 4 Laboratory Results Laboratory Results - last 24 hr 09/02/22 09/02/22 09/02/22 08:47 08:47 18:03 WBC RBC Hgb Hct MCV MCH MCHC RDW Std Deviation RDW Coeff of Ben Plt Count MPV Absolute Nucleated RBC Nucleated RBC % (auto) Platelet Estimate D-Dimer 1930 H* Sodium 128 L Potassium Chloride Carbon Dioxide Anion Gap BUN Creatinine Est Cr Clr Drug Dosing Est GFR ( Amer) Est GFR (Non-Af Amer) BUN/Creatinine Ratio Glucose Calcium Procalcitonin 0.23 09/03/22 09/03/22 09/03/22 06:45 06:45 08:38 WBC Cancelled 8.71 RBC Cancelled 4.92 Hgb Cancelled 14.2 Hct Cancelled 42.1 MCV Cancelled 85.6 MCH Cancelled 28.9 MCHC Cancelled 33.7 RDW Std Deviation Cancelled 40.5 RDW Coeff of Ben Cancelled 12.9 Plt Count Cancelled 272 MPV Cancelled 9.9 Absolute Nucleated RBC Cancelled Nucleated RBC % (auto) Cancelled Platelet Estimate Cancelled D-Dimer Sodium 130 L Potassium 4.7 Chloride 96 L Carbon Dioxide 28 Anion Gap 6 BUN 12 Creatinine 0.33 L Est Cr Clr Drug Dosing 301.1 Est GFR ( Amer) > 150.0 Est GFR (Non-Af Amer) > 150.0 BUN/Creatinine Ratio 36.4 H Glucose 122 H Calcium 8.9 Procalcitonin PG Care Time/CCT Total # of Minutes Spent Total Time Spent with Patient: Total time spent is greater than 50% in coordination of care (as documented) at patient's floor/unit and/or counseling patient: Coding Level of Care Code 52384 Subseq Hosp Care Lvl 3 Diagnoses Hyponatremia E87.1 COVID-19 U07.1 Prader-Willi syndrome Q87.1
--- NOTE | 2022-09-03 15:27 | Hospitalist Progress Note ---
Date of Service September 03, 2022 Assessment & Plan (1) COVID-19: Plan: 22 yo male with Prader-Willi syndrome presenting with SOB, wheeze and hypoxia. Found to be POSITIVE for Covid-19 infection. Patient is not vaccinated against Covid. Uncertain if he has had it before. Hypoxic on arrival at 81% on room air. Required high flow initially, has improved and is now on 40 liters/minute, 50% FIO2 -Admit to medical with telemetry -CRP is elevated at 19 -Patient is a candidate for remdesevir and dexamethasone. -Family refused remdesevir on 09/03 -Continue Dexamethasone 6mg IV daily -Discussed Remdesivir with patient's father. He does not wish to start Remdesivir at this time. -Lovenox 40mg daily -Tylenol PRN, Mucinex PRN -continue levabuterol (2) Hyponatremia: Plan: Pp=134. Suspect secondary to SIADH from Covid-19 infection -improved to 130. F/E/N - Heplock. Monitor Na as above, Mg repletion x 2 grams, Regular diet as tolerated Ppx - Lovenox Code - Full Admission and Anticipated Discharge Date Admission Date: September 02, 2022 Subjective Patient lying in bed and is comfortable. Review of Systems Review of Systems: All systems reviewed & are unremarkable except as noted in HPI & below Physical Exam Physical Exam: General: patient resting comfortably, NAD, non-toxic in appearance Skin: warm, dry, intact, no rashes or lesions HEENT: NC/AT Heart: tachycardic on heart monitor Lungs: no respiratory distress on 3 liters nasal cannula Results & Data Results & Data ([facility]) Vital Signs (Past 12 Hours) Vital Signs Temp Pulse Pulse Pulse Resp BP BP 09/03/22 14:45 36.6 C 102 H 20 141/82 H 09/03/22 13:34 97 H 18 09/03/22 12:07 36.6 C 102 H 20 134/87 09/03/22 09:00 09/03/22 08:27 36.6 C 104 H 20 123/81 09/03/22 07:19 76 09/03/22 07:07 78 20 09/03/22 04:00 36.4 C L 83 18 121/75 09/03/22 03:48 75 Pulse Ox O2 Del Method O2 Flow Rate 09/03/22 14:45 91 Nasal Cannula 3 09/03/22 13:34 93 Nasal Cannula 5 09/03/22 12:07 94 Nasal Cannula 3 09/03/22 09:00 Nasal Cannula 3 09/03/22 08:27 96 Nasal Cannula 3 09/03/22 07:19 09/03/22 07:07 94 Nasal Cannula 3 09/03/22 04:00 93 Nasal Cannula 3 09/03/22 03:48 96 Nasal Cannula 3 PG Care Time/CCT Total # of Minutes Spent Total Time Spent with Patient: Total time spent is greater than 50% in coordination of care (as documented) at patient's floor/unit and/or counseling patient: Coding Level of Care Code 54140 Subseq Hosp Care Lvl 2 Diagnoses COVID-19 U07.1 Hyponatremia E87.1
[2022-09-04] MEDS: LEVALBUTEROL HCL 1.25 MG/3 ML NEB NEB SCH ×4 (00:16→19:21)
[2022-09-04] MEDS: dexAMETHasone 6 MG in SYRINGE 0 ML IV SCH (07:56)
[2022-09-04] MEDS: guaiFENesin 600 MG TABCR PO SCH ×2 (07:57→20:02)
[2022-09-04] MEDS: MAGNESIUM OXIDE 400 MG TAB PO SCH ×2 (07:57→20:02)
[2022-09-04] MEDS: ENOXAPARIN INJ 40 MG/0.4 ML SYR SQ SCH ×2 (07:57→20:02)
[2022-09-04 08:02] LABS: Hematocrit (blood only) 42.4 % (40.1-51.0); Hemoglobin 13.9 g/dl (14.0-18.0); Mean Corpuscular Hemoglobin 28.4 pg (25.0-34.0); Mean Corpuscular Hgb Conc 32.8 g/dL (32.0-36.0); Mean Corpuscular Volume 86.7 fL (80.0-100.0); Mean Platelet Volume 10.1 fL (9.4-12.4); Platelet Count 232 K/uL (130-400); RDW Coefficient of Variation 13.5 % (11.5-14.5); RDW Standard Deviation 42.9 fL (36.4-46.3); Red Blood Count 4.89 M/uL (4.63-6.08); White Blood Count 9.45 K/ul (4.8-10.8)
[2022-09-04 08:45] LABS: Alanine Aminotransferase 18 U/L (7-52); Albumin Globulin Ratio 0.8 (0.9-2); Albumin Level 3.3 gm/dl (3.4-5.0); Alkaline Phosphatase 48 U/L (34-104); Anion Gap 6 (3-11); Aspartate Aminotransferase 15 U/L (13-39); BUN Creatinine Ratio 58.1 (10-20); Bilirubin,Total 0.2 mg/dl (0.2-1.0); Blood Urea Nitrogen 18 mg/dl (6-23); C Reactive Protein 4.51 mg/dl (0-0.5); Carbon Dioxide 30 mmol/L (21-32); Chloride 101 mmol/L (98-107); Creatinine Clr Calc Pharmacy 320.5 ml/min; Est GFR (African American) > 150.0 ml/min; Est GFR (Non-African American) > 150.0 ml/min; Glucose 80 mg/dl (70-99(Fasting)); Potassium 4.6 mmol/L (3.5-5.1); Sodium 137 mmol/L (136-145); Total Protein 7.3 gm/dl (6.0-8.3)
--- NOTE | 2022-09-04 11:28 | XRay Report ---
SINGLE VIEW CHEST CLINICAL HISTORY: Covid. FINDINGS: An AP, portable, upright chest radiograph is compared to study dated 09/02/2022. The examina tion is degraded by portable technique, apical lordotic positioning, and patient rotation. The examin ation is also significantly degraded by scoliosis. The cardiac silhouette appears enlarged. There is prominence of pulmonary vasculature. Small pleural effusions are suspected with bibasilar opacities. No pneumothorax is seen. The skeletal structures are osteopenic. There is thoracolumbar scoliosis wit h spinal rods in place and corresponding deformity of the thoracic cage. IMPRESSION: 1. There is prominence of pulmonary vasculature. Correlate clinically for evidence of fluid overload/ congestive change. 2. Suspect small pleural effusions with dependent airspace opacities. Findings are similar to 09/02/20 22. Clinical correlation will be required. ACT 112: Negative or not required by law. Electronically signed by: Martín Mackey M.D. 09/04/2022 11:26 AM
--- NOTE | 2022-09-04 23:30 | Hospitalist Progress Note ---
Date of Service September 04, 2022 Assessment & Plan (1) COVID-19: Plan: 22 yo male with Prader-Willi syndrome presenting with SOB, wheeze and hypoxia. Found to be POSITIVE for Covid-19 infection. Patient is not vaccinated against Covid. Uncertain if he has had it before. Hypoxic on arrival at 81% on room air. Required high flow initially, has improved and is now on 40 liters/minute, 50% FIO2 -Admit to medical with telemetry -CRP is elevated at 19 on admission, not down to 4. -Patient is a candidate for remdesevir and dexamethasone. -Family refused remdesevir on 09/03 -Continue Dexamethasone 6mg IV daily -Discussed Remdesivir with patient's father. He does not wish to start Remdesivir at this time. -patient is improving with dexamethasone. will continue. -Lovenox 40mg daily -Tylenol PRN, Mucinex PRN -continue levabuterol (2) Hyponatremia: Plan: Vw=444. 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 will remove fluid restriction. F/E/N - Heplock. Monitor Na as above, Mg repletion x 2 grams, Regular diet as tolerated Ppx - Lovenox Code - Full Admission and Anticipated Discharge Date Admission Date: September 02, 2022 Subjective Patient reports feeling better than when he first came in. He tried to take himself off the oxygen and he became hypoxic. Review of Systems Review of Systems: All systems reviewed & are unremarkable except as noted in HPI & below Physical Exam Constitutional: WD/WN, vitals as above Eyes: PERRL, conjunctivae normal, anicteric sclerae Neck: trachea midline, no thyromegaly Respiratory: normal respiratory effort, lungs clear to auscultation Cardiovascular: RRR, no murmur, no edema Gastrointestinal (Abdomen): normal bowel sounds, soft, nontender, no hepatosplenomegaly Musculoskeletal: no cyanosis or clubbing, extremities motor strength 5/5 Skin: no rashes, warm and dry Psychiatric: A+Ox3, euthymic affect Lymphatic: no cervical or axillary lymphadenopathy Results & Data Results & Data ([facility]) Vital Signs (Past 12 Hours) Vital Signs Temp Pulse Pulse Resp BP BP Pulse Ox 09/04/22 22:27 37.1 C 80 18 114/78 94 09/04/22 20:13 36.4 C L 74 20 122/80 93 09/04/22 20:10 09/04/22 19:23 84 18 95 09/04/22 15:50 36.4 C L 84 16 114/73 93 09/04/22 15:31 88 09/04/22 12:47 100 H 16 91 O2 Del Method O2 Flow Rate 09/04/22 22:27 Nasal Cannula 3 09/04/22 20:13 Nasal Cannula 3 09/04/22 20:10 Nasal Cannula 3 09/04/22 19:23 Nasal Cannula 3 09/04/22 15:50 Nasal Cannula 3 09/04/22 15:31 09/04/22 12:47 Nasal Cannula 300 PG Care Time/CCT Total # of Minutes Spent Total Time Spent with Patient: Total time spent is greater than 50% in coordination of care (as documented) at patient's floor/unit and/or counseling patient: Coding Level of Care Code 94283 Subseq Hosp Care Lvl 3 Diagnoses COVID-19 U07.1 Hyponatremia E87.1 Time Spent (min) 35
[2022-09-05] MEDS: LEVALBUTEROL HCL 1.25 MG/3 ML NEB NEB SCH ×4 (01:47→19:31)
[2022-09-05] MEDS: dexAMETHasone 6 MG in SYRINGE 0 ML IV SCH (07:48)
[2022-09-05] MEDS: ENOXAPARIN INJ 40 MG/0.4 ML SYR SQ SCH ×2 (07:49→20:51)
[2022-09-05] MEDS: MAGNESIUM OXIDE 400 MG TAB PO SCH ×2 (07:49→20:50)
[2022-09-05] MEDS: guaiFENesin 600 MG TABCR PO SCH ×2 (07:49→20:48)
[2022-09-05 08:55] LABS: Hematocrit (blood only) 43.1 % (40.1-51.0); Hemoglobin 14.2 g/dl (14.0-18.0); Mean Corpuscular Hemoglobin 28.8 pg (25.0-34.0); Mean Corpuscular Hgb Conc 32.9 g/dL (32.0-36.0); Mean Corpuscular Volume 87.4 fL (80.0-100.0); Platelet Count 303 K/uL (130-400); RDW Coefficient of Variation 13.8 % (11.5-14.5); RDW Standard Deviation 44.3 fL (36.4-46.3); Red Blood Count 4.93 M/uL (4.63-6.08)
[2022-09-05 09:23] LABS: Anion Gap 7 (3-11); BUN Creatinine Ratio 52.8 (10-20); Blood Urea Nitrogen 19 mg/dl (6-23); C Reactive Protein 2.55 mg/dl (0-0.5); Calcium 8.9 mg/dl (8.5-10.1); Carbon Dioxide 30 mmol/L (21-32); Chloride 102 mmol/L (98-107); Est GFR (African American) > 150.0 ml/min; Est GFR (Non-African American) > 150.0 ml/min; Glucose 78 mg/dl (70-99(Fasting)); Potassium 4.8 mmol/L (3.5-5.1); Sodium 139 mmol/L (136-145)
--- NOTE | 2022-09-05 21:40 | Hospitalist Progress Note ---
Date of Service September 05, 2022 Assessment & Plan (1) COVID-19: Plan: 22 yo male with Prader-Willi syndrome presenting with SOB, wheeze and hypoxia. Found to be POSITIVE for Covid-19 infection. Patient is not vaccinated against Covid. Uncertain if he has had it before. Hypoxic on arrival at 81% on room air. Required high flow initially, has improved and is now on 40 liters/minute, 50% FIO2 -Admit to medical with telemetry -CRP is elevated at 19 on admission, now down to 2 -Patient improving with dexamethasone. -If oxygen requirements continue to improve, will discharge tomorrow. -Lovenox 40mg daily -Tylenol PRN, Mucinex PRN -continue levabuterol (2) Hyponatremia: Plan: Vh=312. 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 will remove fluid restriction. F/E/N - Heplock. Monitor Na as above, Mg repletion x 2 grams, Regular diet as tolerated Ppx - Lovenox Code - Full Admission and Anticipated Discharge Date Admission Date: September 02, 2022 Subjective 22 yo male reports feelling better. NOw comfortable on 2 liters nasal cannula. Review of Systems Review of Systems: All systems reviewed & are unremarkable except as noted in HPI & below Physical Exam Physical Exam: General: patient resting comfortably, NAD, non-toxic in appearance Skin: warm, dry, intact, no rashes or lesions HEENT: NC/AT Heart: normal rate on heart monitor Lungs: no respiratory distress on 2 liters nasal cannula Results & Data Results & Data ([facility]) Vital Signs (Past 12 Hours) Vital Signs Temp Pulse Pulse Resp BP Pulse Ox O2 Del Method 09/05/22 19:35 36.5 C 76 18 113/80 95 Nasal Cannula 09/05/22 19:34 85 16 96 Nasal Cannula 09/05/22 17:07 37.1 C 74 16 121/81 94 Room Air 09/05/22 15:01 74 09/05/22 13:10 81 16 96 Nasal Cannula O2 Flow Rate 09/05/22 19:35 2 09/05/22 19:34 2 09/05/22 17:07 09/05/22 15:01 09/05/22 13:10 2 PG Care Time/CCT Total # of Minutes Spent Total Time Spent with Patient: Total time spent is greater than 50% in coordination of care (as documented) at patient's floor/unit and/or counseling patient: Coding Level of Care Code 64931 Subseq Hosp Care Lvl 2 Diagnoses COVID-19 U07.1 Hyponatremia E87.1 Time Spent (min) 25
[2022-09-06] MEDS: LEVALBUTEROL HCL 1.25 MG/3 ML NEB NEB SCH ×3 (00:41→12:59)
[2022-09-06] MEDS: guaiFENesin 600 MG TABCR PO SCH (08:18)
[2022-09-06] MEDS: dexAMETHasone 6 MG in SYRINGE 0 ML IV SCH (08:19)
[2022-09-06] MEDS: MAGNESIUM OXIDE 400 MG TAB PO SCH (08:19)
[2022-09-06] MEDS: ENOXAPARIN INJ 40 MG/0.4 ML SYR SQ SCH (08:20)
--- NOTE | 2022-09-13 13:51 | Discharge Summary ---
Date of Service September 06, 2022 Admission HPI Per Admitting Provider Note: Patient will be following with [facility] as an outpatient. Keith Daly is a 22yo male with Prader-Willi syndrome presenting with SOB and hypoxia, found to be POSITIVE for Covid-19 virus. Patient's symptoms began approximately 5 days ago. He developed malaise and fever as well as cough. His symptoms have been progressive over the last several days. Today he was having more difficulty breathing. His father checked his oxygen saturation at home and it was found to be in the low to mid 80's. Patient tachycardic in the ER, tachypnic with hypoxia at 81% on room air. He was placed on 4L of O2 by nasal cannula with rapid improvement in his oxygenation. Still with tachypnea and increased work of breathing, therefore was placed on High Flow NC. Father at bedside and assists with history. Patient resting comfortably, no additional complaints at this time. ER Course: Dexamethasone 6mg IV, Albuterol 3mL neb Principal Diagnosis COVID 19 Pneumonia Discharge Exam Constitutional WD/WN, vitals as above Eyes PERRL, conjunctivae normal, anicteric sclerae Neck trachea midline, no thyromegaly Respiratory normal respiratory effort, lungs clear to auscultation Cardiovascular RRR, no murmur, no edema Gastrointestinal (Abdomen) normal bowel sounds, soft, nontender, no hepatosplenomegaly Musculoskeletal no cyanosis or clubbing, extremities motor strength 5/5 Skin no rashes, warm and dry Psychiatric A+Ox3, euthymic affect Lymphatic no cervical or axillary lymphadenopathy Discharge Data Allergies Allergy/AdvReac Type Severity Reaction Status Date / Time No Known Allergies Allergy Unverified 01/01/14 14:03 Consultations 09/02/22 04:33 ED Decision to Admit Stat 09/02/22 08:31 Consult Nephrology Routine Hospital Course (1) COVID-19: Patient will be following with P[facility] as an outpatient. Acute respiratory failure with hypoxia 22 yo male with Prader-Willi syndrome presenting with SOB, wheeze and hypoxia. Found to be POSITIVE for Covid-19 infection. Patient is not vaccinated against Covid. Uncertain if he has had it before. Hypoxic on arrival at 81% on room air. Required high flow initially, has improved and is now on 40 liters/minute, 50% FIO2 -Admitted to medical with telemetry -CRP is elevated at 19 on admission, now down to 2 -Patient improved with dexamethasone, had a 2 step on day of discharge. Patient will only require 1 liter of nasal cannula while ambulating. Anticipate patient will continue to improve as an oupatient. will complete 10 days total of steroids (2) Hyponatremia: Qn=365. 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 Patient treated with fluid restriction initially, however, he was then transitioned to a regular diet Sodium remained stable. Total Time Total Time Spent Total Time Spent (In Minutes): 35 Discharge Plan Discharge Items Patient Disposition: Home - Self-Care Reason For Visit: COVID-19, HYPOXIA Discharge Diagnosis: COVID 19 Activity: Resume your previous activity Non-emergency contact: Primary Care Provider Call non-emergency contact if: you have any medication questions Follow-up/Referrals: Rochelle Garcia MD [Outside Practitioners] - (Date & Time 09/10/2022 10:40 AM [place] [address] ) Diet: Regular Addtl Attending Provider Instructions: Good afternoon Mr. Keith Daly, You were hospitalized for COVID. and thankfully you responded with dexamethasone. Your breathing sounds and oxygen requirements improved over the past few days. I am happy to report that I anticipate over the next few days, you should continue to improve. For now, we recommend 1 liter of oxygen only when you walk around. Please take dexamethasone 6 mg once a day for 5 more day starting tomorrow. Please follow-up with your [facility] PCP in 1-2 weeks. Will recommend to continue with magnesium for 7 more days and have your PCP r echeck those levels It was a pleasure taking care of you. Best regards, Eliceo Shelby Pending Studies at Discharge: No Stand-Alone Forms: My [facility] [employer], Smoking Cessation Medications and DC Order Prescriptions: New magnesium oxide 400 mg (241.3 mg magnesium) Tablet 400 mg PO DAILY Qty: 7 0RF dexamethasone 6 mg tablet 6 mg PO DAILY Qty: 5 0RF Continued Multivitamin tablet 1 tab PO DAILY Qty: 0 Discharge Orders: Discharge Order (Routine); Ordered 09/06/22 Ordered By: Eliceo Shelby Admission Data Admit Date/Time: 09/02/22 04:33 Attending Provider: Eliceo Shelby Admit Provider: Ashlyn Jacome Primary Care Provider: PCP,NO Other Providers: Ashlyn Jacome ; Srinivasan Alfonso ; Clay Adams ; Osiris Das ; José Mercedes ; Lilliam See Other Interventions: Discharge Summary Assessment (RN) Last Done: 09/06/22 13:52 Coding Level of Care Code D/C DAY MANAGEMENT >30 MINS Diagnoses COVID-19 U07.1 Hyponatremia E87.1
== END 2022-09-06 14:24 | disposition home or self-care (01) | DRG 177 ==
LOC: ED 02:08 → SUATTDRO 04:33 → 2W 04:33